=== PATIENT | male | born 1990 | race African-American/Black ===

== ENCOUNTER 2017-11-11 11:36 | Emergency (ER) | payer SELFPAY ==
[~2017-11-11] VITALS: Ht 188 cm; Wt 90.9 kg
[~2017-11-11 11:36] MED LIST: CEPHALEXIN500 M1 PO
[2017-11-11 11:47] VITALS: BP 141/98
[2017-11-11] MEDS ORDERED: ZYRTEC10 M3 PO (12:36)
[2017-11-11] MEDS ORDERED: GENTAMICIN EYE D5 ML OP (12:36)
== END 2017-11-11 12:40 | disposition home or self-care (01) ==
LOC: ED 11:36
DX: H10.33 Unspecified acute conjunctivitis, bilateral (principal)

== ENCOUNTER 2019-05-03 01:23 | Emergency (ER) | payer SELFPAY ==
[~2019-05-03 01:23] MED LIST changes: +GENTAMICIN EYE D5 ML OP; +ZYRTEC10 M3 PO
[2019-05-03 01:59] VITALS: BP 132/76
== END 2019-05-03 03:15 | disposition home or self-care (01) ==
LOC: ED 01:23
DX: J00 Acute nasopharyngitis [common cold] (principal); R51 Headache; F17.210 Nicotine dependence, cigarettes, uncomplicated; Z98.890 Other specified postprocedural states

== ENCOUNTER 2024-05-22 09:20 | Emergency (ER) | payer SELFPAY ==
[~2024-05-22] VITALS: Ht 190.5 cm; Wt 100.0 kg
[~2024-05-22 09:20] MED LIST changes: +AMOXICILLIN875 MG PO; +HCTZ 25MG25 MG PO; +NORCO 325 MG-51 TA1 PO; +ZOFRAN ODT4 MG PO
[2024-05-22 10:22] VITALS: BP 147/103
== END 2024-05-22 10:22 | disposition home or self-care (01) ==
LOC: ED 09:20
DX: J02.9 Acute pharyngitis, unspecified (principal); Z86.16 Personal history of COVID-19